=== PATIENT | male | born 1945 | race Caucasian/White ===

== ENCOUNTER 2018-08-21 09:56 | Day surgery (SDC) | payer MEDICARE, OTHER ==
--- NOTE | 2018-08-20 17:20 | History and Physical - [place] ---
DATE OF EVALUATION: 08/20/18 CHIEF COMPLAINT/HISTORY OF CHIEF COMPLAINT: This patient presents with a history of intractable cervical and lumbar radiculopathy. Due to the failure of therapies, separate spinal cord stimulator trials were conducted for both neck, shoulder, and arm as well as low back, hip, and leg. He currently has nonfunctional peripheral nerve stimulators and epidural stimulators in his neck as well as epidural stimulators in his low back; both older systems [employer] and are nonfunctional. This separate trials for cervical lumbar stimulator with [employer] systems resulted in 75 to 85% pain control to the respected areas. Due to the failure of all therapies and the success of the trials, he presents today for implantations of the permanent systems. He has failed all conservative therapies. Physical therapy, biomechanical treatments, chiropractor treatments did not work. Medications were complicated; produces side-effects. Pain clinic treatments were unsuccessful. A surgical evaluation had suggested no surgery. PAST MEDICAL HISTORY: Hypertension. PAST SURGICAL HISTORY: Coronary artery disease and catheterization, cervical and lumbar stimulator implants. SOCIAL HISTORY: Caffeine. FAMILY HISTORY: Coronary artery disease, hypertension, cancer. SYSTEMS REVIEW: The patient seems appropriate in no acute distress. Remainder of the systems review; blood pressure, degenerative arthritis. PHYSICAL EXAMINATION: GENERAL: Height is 5'5", weight is 200 pounds. VITAL SIGNS: No vital signs. HEENT: Within normal limits. LUNGS: Clear. HEART: Regular rate and rhythm. ABDOMEN: Nontender. MUSCULOSKELETAL: Examination of the musculoskeletal system shows diffuse cervical and lumbar spine pain. There were radicular components into both upper and lower extremities. There is no significant motor weakness upper. There is mild sensory loss to the upper extremities. Motor and sensory evaluation to lower extremities appears to be intact although there is pain across multiple dermatomes and distributions. NEUROLOGIC: Cranial nerves are intact. IMPRESSION: 1. CERVICAL AND LUMBAR RADICULOPATHY, ICD-10 CODE = M54.12 AND M54.16. 2. CERVICAL AND LUMBAR SPINAL CORD STIMULATORS NONFUNCTIONAL. PLAN: The patient is here for removal of both cervical and lumbar nonfunctional systems and replacement with [employer] cervical and lumbar stimulators with independent generators. The procedure will be considered outpatient although an overnight stay will be evaluated. cc: Dr. Cummings JOB NUMBER: [id number] MTDD
[~2018-08-21 09:56] MED LIST: ACETAMINOPHEN 1,000 MG/100 ML BTL IV ONE; CEFAZOLIN 2 Gram 2 GM/50 ML BAG IVPB ONE; FAMOTIDINE 20MG TABLET PO ONE; MECLIZINE 25 MG TABLET PO ONE; METOCLOPRAMIDE 10 MG TABLET PO ONE
[2018-08-21] MEDS ORDERED: LABETALOL HCL 5MG/ML, 20ML VIAL IV ONE (09:57)
[2018-08-21] MEDS ORDERED: LIDOCAINE 1% W/EPI 1:200,000 MPF 30ML SQ ONE (09:57)
[2018-08-21] MEDS ORDERED: LIDOCAINE 2% MDV (20MG/ML) 20ML VIAL IV ONE (09:57)
[2018-08-21] MEDS ORDERED: MIDAZOLAM HCL 2MG/2ML VIAL IV ONE (09:57)
[2018-08-21] MEDS ORDERED: PROPOFOL 10 MG/ML VIAL IV ONE (09:57)
[2018-08-21] MEDS ORDERED: BUPIVACAINE 0.5% W/EPI MPF 30 ML VIAL IVP ONE (09:57)
[2018-08-21] MEDS ORDERED: HYDROMORPHONE HCL 2 MG/ML VIAL IV ONE (09:57)
[2018-08-21] MEDS ORDERED: CEFAZOLIN 1G VIAL IM ONE (09:57)
[2018-08-21] MEDS ORDERED: ESMOLOL HCL 100 MG/10 ML ML IVP ONE (09:57)
[2018-08-21] MEDS ORDERED: FENTANYL PF 100MCG/2ML VIAL IV ONE (09:57)
[2018-08-21] MEDS ORDERED: HYDROMORPHONE HCL 2 MG/ML VIAL IM PRN ×2 (17:14→17:23)
[2018-08-21] MEDS ORDERED: ACETAMINOPHEN 325 MG TAB PO PRN ×2 (17:14)
[2018-08-21] MEDS ORDERED: SENNOSIDES/DOCUSATE SODIUM UD CAPSULE PO PRN ×2 (17:14)
[2018-08-21] MEDS ORDERED: DIPHENHYDRAMINE HCL 50 MG/ML VIAL IV PRN ×2 (17:14)
[2018-08-21] MEDS ORDERED: DIPHENHYDRAMINE HCL 25 MG CAPSULE PO PRN ×2 (17:14)
[2018-08-21] MEDS ORDERED: METOCLOPRAMIDE HCL 10 MG/2 ML VIAL IV PRN (17:14)
[2018-08-21] MEDS ORDERED: METOCLOPRAMIDE 10 MG TABLET PO PRN (17:14)
[2018-08-21] MEDS ORDERED: OXYCODONE/APAP 10MG-325MG TABLET PO PRN (17:14)
[2018-08-21] MEDS ORDERED: TEMAZEPAM 15 MG CAPSULE PO PRN (17:14)
[2018-08-21] MEDS ORDERED: HYDROCODONE/APAP 7.5/325MG TABLET PO PRN ×2 (17:14)
[2018-08-21] MEDS ORDERED: AL HYDROX/MAG HYDROX 30ML UD PO PRN (17:14)
[2018-08-21] MEDS: CEFAZOLIN 2 Gram 2 GM/50 ML BAG IVPB SCH (19:44)
[2018-08-21] MEDS ORDERED: ATORVASTATIN 20 MG TABLET PO SCH (22:00)
[2018-08-21] MEDS ORDERED: NIFEDIPINE 30 MG TAB.ER.24 PO SCH ×2 (22:00)
[2018-08-21] MEDS ORDERED: METOPROLOL SUCC 50 MG TABLET PO SCH (22:00)
[2018-08-21] MEDS ORDERED: METOPROLOL TART 50 MG TABLET PO SCH (22:00)
--- NOTE | 2018-08-21 23:26 | Operative Note ---
DATE OF SURGERY: 08/21/2018 PREOPERATIVE DIAGNOSES: 1. CERVICAL RADICULOPATHY, ICD-10 CODE = M54.12. 2. CERVICAL TWO-LEAD SPINAL CORD STIMULATOR WITH TWO CERVICAL PERIPHERAL NERVE STIMULATORS AND INTERNAL GENERATOR, NONFUNCTIONAL. 3. INTRACTABLE LUMBAR RADICULOPATHY, ICD-10 CODE = M54.16 AND M54.17. 4. TWO-LEAD SPINAL CORD STIMULATOR INTERNAL GENERATOR LUMBAR, NONFUNCTIONAL. SURGERY: 1. FLUOROSCOPIC-GUIDED INCISION, SUBCUTANEOUS DISSECTION, AND [id number] OF TWO CERVICAL PERIPHERAL NERVE STIMULATORS. 2. INCISION, SUBCUTANEOUS DISSECTION, AND REMOVAL OF TWO CERVICAL EPIDURAL IMPLANTED LEADS. 3. INCISION, SUBCUTANEOUS DISSECTION, AND REMOVAL OF INTERNAL PULSE GENERATOR FOR CERVICAL STIMULATORS. 4. INCISION, SUBCUTANEOUS DISSECTION, AND REMOVAL OF TWO EPIDURAL SPINAL CORD STIMULATORS LUMBAR. 5. INCISION, SUBCUTANEOUS DISSECTION, AND REMOVAL OF INTERNAL PULSE GENERATOR FOR TWO LUMBAR LEADS. 6. FLUOROSCOPIC-GUIDED ACCESS LUMBAR EPIDURAL SPACE BILATERAL T12-L1 WITH CURVED ACCESS EPIMED NEEDLE WITH LOSS OF RESISTANCE. 7. PLACEMENT OF LEFT EPIDURAL SPINAL CORD STIMULATOR, A [employer] INFINION 16, 6 ELECTRODES POSITIONED LEFT T10. 8. PLACEMENT OF RIGHT EPIDURAL SPINAL CORD STIMULATOR LEAD 2, ALSO A [employer] INFINION 16, 6 ELECTRODES POSITIONED RIGHT T10. 9. COMPLEX PROGRAMMING EPIDURAL STIMULATOR LEAD 1, 20 MINUTES. COMPLEX PROGRAMMING EPIDURAL STIMULATOR LUMBAR LEAD 22, 20 MINUTES. 10. ANCHORING OF LEAD 1 AND LEAD 2 TO DEEP FASCIA AT PREVIOUSLY FORMED INCISIONS USING A [employer] LOCKING ANCHOR AND NONABSORBABLE SUTURE. 11. PLACEMENT OF INTERNAL PULSE GENERATOR FOR LUMBAR LEADS LEFT POSTERIOR GLUTEAL MARGIN TUNNELING LEADS INTO GENERATOR POUCH, INTERFACE TWO LEADS WITH GENERATOR. 12. PLACEMENT OF LUMBAR GENERATOR INTO POUCH, PLACEMENT OF LUMBAR LEADS INTO POUCH. CLOSURE OF INCISIONS WITH VICRYL FOR FASCIA, SRAVANTHI FOR SKIN. 13. FLUOROSCOPIC-GUIDED PLACEMENT OF EPIDURAL SPINAL CORD STIMULATOR LEAD 3, A [employer] INFINION 16, 6 ELECTRODES, INSERTION LEFT C7-T1, UPPER ELECTRODE C4. 14. PLACEMENT OF CERVICAL EPIDURAL STIMULATOR LEAD 4, A [employer] INFINION 16, 6 ELECTRODES POSITION RIGHT, INSERTION C7-T1, UPPER ELECTRODE RIGHT C4. 15. COMPLEX PROGRAMMING CERVICAL STIMULATOR LEAD 1, 20 MINUTES AND CERVICAL STIMULATOR LEAD 3, 20 MINUTES. PROGRAMMING OF CERVICAL STIMULATOR LEAD 4, 20 MINUTES. 16. ANCHORING OF LEADS 3 AND 4 TO DEEP FASCIA WITH [employer] LOCKING ANCHOR AND NONABSORBABLE SUTURE. 17. TUNNELING BETWEEN CERVICAL LEAD POUCHES TO RIGHT POSTERIOR GLUTEAL MARGIN. PLACEMENT OF INTERNAL PULSE GENERATOR FOR CERVICAL LEADS, [employer] SCIENTIFIC PROGRAMMABLE, RECHARGEABLE WAVEWRITER. INTERFACE CERVICAL LEADS TO GENERATOR. 18. PLACEMENT OF GENERATOR INTO POUCH, PLACEMENT OF LEADS INTO POUCH. CLOSURE OF CERVICAL INCISIONS AND GENERATOR WITH VICRYL FOR FASCIA AND SRAVANTHI FOR SKIN. 19. OPSITE DRESSING PLACED WITH TELFA PADS OVER ALL INCISIONS. 20. COMPLEX PROGRAMMING TWO INTERNAL GENERATORS, ONE LEFT AND ONE RIGHT, RECOVERY ROOM 20 MINUTES. SURGEON: STANISLAW JUAREZ D.O. ANESTHESIA: LOCAL SEDATION. ANESTHESIA PROVIDER: ZAKI Stewart. INDICATIONS: This patient presents with a history of intractable cervical and lumbar radiculopathy. His cervical spine has two peripheral leads and two epidural leads, which are nonfunctional and an associated generator at the right posterior gluteal margin. He also has intractable lumbar radiculopathy and two nonfunctional epidural leads and internal generator at the left posterior gluteal margin. He had a successful cervical epidural trial and is here for a combination of implantation for cervical and lumbar leads along with replacement of generators and removal of nonfunctional systems; two peripheral cervicals, two epidural cervicals, and two lumbar epidurals. PROCEDURE: Intravenous line, vital sign monitoring, IV sedation, prepped and draped in sterile technique, patient positioned prone. Sterile prep, sterile technique. With the patient prone, the incisions for the two peripheral leads and the two epidural leads in the area of cervical spine were infiltrated with local, incision made, and subcutaneous dissection was conducted to the leads and anchors. The peripheral leads were removed, although one electrode of the four-electrode appears to have broken off subcutaneously and could not be identified or found. The remainder of the two peripheral leads were removed intact. The two epidural leads were then also removed intact. At the right posterior gluteal margin, the generator for the cervical leads, skin infiltrated , incision made, and subcutaneous dissection was conducted to the generator. The generator and the lead extensions were all removed intact. The two midline lumbar incisions for lumbar leads was infiltrated, incision made, and subcutaneous dissection was conducted to the anchors. The anchors were removed and the two epidural leads were removed intact. The left posterior gluteal generator for the leads was identified. Skin infiltrated, incision made, and subcutaneous dissection was conducted. The generator and the extensions were removed. All nonfunctional leads; four cervical and two lumbar, had been removed intact, short of one electrode, and two generators. With respect to the epidural lumbar, the epidural space at 12-1 was identified marked. Using two curved access Epimed needles, one left and one right of the midline, the space was accessed. On the left, spinal cord stimulator lead 1, a [employer] Infinion 16, 6 electrodes was positioned as high as could be placed at T10. On the right, similar technique, curved access Epimed needle with loss of resistance, spinal cord stimulator lead 2, a [employer] Infinion 16, 6 electrodes was positioned right of the midline at T10. Complex programming of lead 1 over 20 minutes followed by complex programming of lead 2 over 20 minutes resulted in a complete pattern of stimulation across the back and into the legs, patient indicating we had the area. With the previously formed incisions, each of the two new leads was then anchored to the supraspinous fascia with a [employer] locking anchor and nonabsorbable suture. A new generator, a [employer] WaveWriter, programmable and rechargeable, was then placed onto the field and inserted into the left posterior gluteal margin generator pouch previously formed. The new leads were tunneled into the pouch and interfaced with the generator. Antibiotic irrigation and Bovie for hemostasis. The incisions were then closed using Vicryl for fascia, sravanthi for skin. Moving to the neck, two epidural needles with loss of resistance were used to gain entry into the epidural space at C7-T1, one left and one right. On the left, spinal cord stimulator identified as lead 3, a [employer] Infinion 16, 6 electrodes was positioned into the cervical epidural space left of the midline approximating C4. With the epidural access right at C7-T1, spinal cord stimulator lead 4, also a [employer] Infinion 16, 6 electrodes was advanced right of the midline and positioned at C4. Complex programming of lead 1 over 20 minutes followed by complex programming of lead 2 over 20 minutes resulting in a complete pattern of stimulation across the neck, shoulders, and arms; patient indicating we had all the areas with respect to his neck and shoulders. Antibiotic irrigation and Bovie for hemostasis. Each of the leads was then anchored to the deep fascia using a [employer] locking anchor and nonabsorbable suture. These two epidural leads were then tunneled into the right posterior gluteal margin generator pouch and then interfaced with a second internal generator, this for the lumbar leads, a [employer] programmable, rechargeable WaveWriter. The leads were placed into the pouch and the generator into the pouch and then all incisions were closed using Vicryl for fascia, sravanthi for skin. He was transported to the Recovery Room after appropriate dressings were placed. Surgical time was 4 hours. Because of his prone position, he was showing some facial swelling. He will be kept overnight for observation to manage pain and any side effects which could occur. He will be discharged in the morning, if stable. DISCHARGE INSTRUCTIONS: 1. The sites are to remain clean and dry, no showing or bathing in any way that would disrupt dressings. If it happens, contact the clinic. 2. Standard medications will be resumed including Levaquin, the antibiotic, 500 mg for 14 days. 3. The office will contact the patient in the next 2 to 3 days to set up a time in the next 7 to 10 days for us to evaluate the sites. Until then , his activities should stay controlled. All other instructions provided, numbers to contact if problems given. He will be evaluated in the office. cc: Dr. Mike Cummings JOB NUMBER: [id number] MTDD
[2018-08-22] MEDS: OXYCODONE/APAP 10MG-325MG TABLET PO PRN ×2 (01:06→09:54)
[2018-08-22] MEDS: CEFAZOLIN 2 Gram 2 GM/50 ML BAG IVPB SCH ×2 (03:13→11:00)
[2018-08-22] MEDS ORDERED: RAMIPRIL 2.5 MG CAPSULE PO SCH (10:00)
[2018-08-22] MEDS ORDERED: SERTRALINE HCL 50 MG TABLET PO SCH (10:00)
--- NOTE | 2018-08-24 12:23 | RADIOLOGY REPORT ---
EXAM: CERVICOTHORACIC SPINE HISTORY: SPINAL CORD STIMULATOR IMPLANT. TECHNIQUE: A single frontal view of the cervicothoracic spine was obtained. Comparison: Spine radiograph 08/12/12. FINDINGS: Apparent removal/revision of stimulator devices since 2011 comparison. There are now paired stimulator leads in the projection of the mid to lower cervical spine. Adjacent skin sravanthi are noted. Please see clinician note for procedural details. IMPRESSION: ABOVE. JOB NUMBER: [id number] MTDD
== END 2018-08-22 13:05 | disposition home or self-care (01) ==
LOC: SUR 09:56 → MEDSURG 16:39 → SUR 08-22 13:05
PROVIDERS: ATTEND Pain Medicine Interventional Pain Medicine
DX: M54.12 Radiculopathy, cervical region (principal); M54.16 Radiculopathy, lumbar region; M54.17 Radiculopathy, lumbosacral region
CPT/HCPCS: 63663 ×2; 63685 ×2; 01936; 95972; 72020; J3010; J1170; J0690 ×2; C1820; C1883